=== PATIENT | female | born 1980 | race Caucasian/White ===

== ENCOUNTER 2024-06-04 13:00 | Outpatient (RCR) | payer OTHER, SELFPAY | END 2024-10-02 23:59 | disposition home or self-care (01) | PROVIDERS: PCP Physician Assistant Medical; Visit Provider Physician Assistant Medical | DX: M67.814 Other specified disorders of tendon, left shoulder (principal); M77.8 Other enthesopathies, not elsewhere classified; M75.42 Impingement syndrome of left shoulder; M75.52 Bursitis of left shoulder; M25.512 Pain in left shoulder; M25.612 Stiffness of left shoulder, not elsewhere classified; M62.512 Muscle wasting and atrophy, not elsewhere classified, left shoulder; R29.3 Abnormal posture; Z51.89 Encounter for other specified aftercare | CPT/HCPCS: 97110; 97140; 97162 ==

== ENCOUNTER 2024-12-14 10:39 | Outpatient (CLI) | payer BC, SELFPAY ==
--- OUTSIDE RECORDS SUMMARY | 2024-12-14 10:49 | XMS_ITS | Clinical Summary ---
Author Organization [facility] Address [address] [place] [address] Care Team Providers Care Quarter Seamer Name Role Phone Unavailable Primary Care Provider Unavailabl e Source Comments Patient records contain information from all sites at [facility]. For routine questions regarding patient records, call [phone] during business hours, M-F 8:00 AM - 5:00 PM Central Time. Record requests for emergency care only can be directed to [phone] at any time.[facility] Allergies Active Allergy Reactions Criticality Noted Date Comments Clotrimazole Rash 03/17/2017 Iodinated Contrast Media Other (see comments) Medium 0 01/18/2023 Racing heart Medications cyclobenzaprine (FLEXERIL) 10 mg tablet Take 10 mg by mouth 2 (two) times a day as needed. 3 Active desvenlafaxine (PRISTIQ) 50 mg 24 hr tablet Take 50 mg by mouth. 3 Active LORazepam (ATIVAN) 0.5 mg tablet Take one tablet sparingly as needed for anxiety. Limit to once daily. 7 Active polyethylene glycol-electrol ytes (GoLYTELY) 236-22.74-6.74 -5.86 gram solution Take 4,000 mL by mouth. 3 Active propranoloL (INDERAL LA) 120 mg 24 hr capsule Take 120 mg by mouth. 3 Active propranoloL (INDERAL LA) 60 mg 24 hr capsule 3 Active rosuvastatin (CRESTOR) 10 mg tablet Take 10 mg by mouth. 3 Active Ozempic 1 mg/dose (4 mg/3 mL) injection Inject 1 mg under the skin over 168 hr. 3 Active semaglutide (OZEMPIC) 0.25 mg or 0.5 mg (2 mg/3 mL) injection Inject 0.25 mg under the skin over 168 hr. 3 Active Active Problems Problem Noted Date Diagnosed Date Major Depressive Disorder Single Episode Unspeci fied 03/20/2012 Overview (11/16/2016): Major depression, single episode NOS Immunizations Immunization Administration Dates Next Due Tdap 04/10/2009 Social History Tobacco Use Types Packs/Day Years Used Date Smoking Tobacco: Never Nutrition Answer Date Recorded Nutrition: EVOO Fat Source Unknown 12/02 Nutrition: Servings of Fruits/Vegetables per Day Not on file 12/02/2022 Dental Answer Date Recorded Dental: Regular Dentist Unknown 12/03/19 Comments Unknown Sex and Gender Information Value Date Recorded Sex Assigned at Not on file Legal Sex Female 4:26 AM [employer] Gender Identity Not on file Sexual Orientation Not on file Last Filed Vital Signs Vital Sign Reading Time Taken Comments Blood Pressure 110/64 11/02/2012 9:04 AM CDT Pulse 75 11/02/2012 9:04 AM CDT Temperature - - Respiratory Rate 18 08/10/2012 8:16 AM [employer] Oxygen Saturation - - Inhaled Oxygen Concentration - - Weight 113 kg (249 lb 12.5 oz) 11/02/2012 9:04 A M CDT Height 165 cm (5' 4.96) 11/02/2012 9:04 AM CDT Body Mass Index 41.62 11/02/2012 9:04 AM CDT Plan of Treatment Health Maintenance Due Date Last Done Comments Depression Monitoring (PHQ-9) 1981 Hepatitis C Screening 1980 Cervical/Vaginal Cancer Screening 11/03/2015 11/02/2012 COVID-19 Vaccine ( season) 2024 05/18/2022, 03/27/2021, 08/01/2020, Additional history exists Influenza Vaccine (#1) 2024 2, 05/26/2021, 04/28/2020, Additional history exists Depression Monitoring (PHQ-9 for quality tracking) 06/27/2024 Mammogram 06/05/2025 06/05/2024, 07/28/2021 DTaP,Tdap,and Td Vaccines (4 - Td or Tdap) 12/30/2027 12/29/2017, 04/10/2009, 11/29/2008 Lipid (Cholesterol) Screening 10/31/2028 11/01/2023, 11/05/2022, 09/16/2020 Hepatitis B Vaccines Completed 11/29/2008, 03/29/2005, 01/25/2002 HIV Screening Completed 03/28/2009 Hepatitis B Screening Discontinued 07/22/2020 HPV Vaccines Aged Out No longer eligi ble based on patient's age to complete this topic IPV Vaccines Aged Out No longer eligi ble based on patient's age to complete this topic Pneumococcal vaccine (0-49 years) Aged Out No longer eligible based on patient's age to complete this topic Procedures Procedure Name Priority Date/Time Associated Diagnosis Comments THINPREP SCREEN HPV REFLEX Routine 11/02/2012 11:30 AM CDT from Last 3 Months or Most Recently Relevant to Health Maintenance Results * Pathology ThinPrep Screen HPV Reflex (11/02/2012 11:30 AM CDT) Interpretation [id number] POWERCHART [facility] See Comment POWERCHART Comment: A. ThinPrep Pap Test Screen (Cervical/Endocervical HPV Reflex): Satisfactory for evaluation. Negative for intraepithelial lesion or malignancy. Fungal organisms morphologically consistent with Tona species [facility] See Comment POWERCHART Comment: Report electronically signed by APPLE Bess(ASCP) 11/08/2012 13:52 Interpreted by: APPLE Bess(ASCP) [facility] See Comment POWERCHART Comment: A. ThinPrep Pap Test Screen (Cervical/Endocervical HPV Reflex): Received cloudy specimen in ThinPrep vial. Test Performed by: [address] [address] [employer] Teacher: Ranjith Coronel III, M.D. Cervix/Endocervix 11/02/2012 11:30 AM CDT us Delon Ornelas M.D. LAB PAP PATHDX ORDERABLES Cherise l Result POWERCHART from Last 3 Months or Most Recently Relevant to Health Maintenance Insurance [facility] [employer]
--- OUTSIDE RECORDS SUMMARY | 2024-12-14 10:49 | XMS_ITS | Clinical Summary ---
Author Organization [facility] Address [address] [place] [id number] Care Team Providers Care Reading Instructor Name Role Phone Oliva Rawls Primary Care Provider Allergies Active Allergy Reactions Criticality Noted Date Comments Iodinated Contrast Media *Unknown Medium 01/18/2023 Racing heart Clotrimazole Rash 03/17/2017 Medications triamcinolone (ARISTOCORT; KENALOG) 0.1 % creamIndications: Vaginal itching Apply to affected area 1-2 times a day as needed. Do not use >14days 80 g 2 5:23 PM CDT 03/15/20 22 Active LORazepam (Ativan) 0.5 mg tabIndications:Ot her insomnia Take one tablet sparingly as needed for anxiety. Limit to once daily. 15 Tablet 05/18/20 23 Active loperamide (IMODIUM) 2 mg capsuleIndication s:Gastroenteritis Take 2 capsules (4mg) orally with 1st loose stool, then 1 capsule (2mg) with other loose stools. Max 16 mg in 24 hrs. 40 Capsule 06/29/19 24 Active desvenlafaxine succinate (Pristiq) 100 mg extended release tabletIndications :Anxiety,Depressi on, unspecified depression type Take 1 Tablet (100 mg) by mouth once daily in the morning. 90 Tablet 3 05/07/20 24 Active propranolol ER (INDERAL LA) 120 mg Cs24 Sustained-Release capsuleIndication s:Anxiety,HTN (hypertension) Take 1 Capsule (120 mg) by mouth once daily. 90 Capsule 3 05/07/20 24 Active glipiZIDE (GLUCOTROL) 10 mg tabletIndications :Type 2 diabetes mellitus without complication, without long-term current use of insulin (HC) Take 1 Tablet (10 mg) by mouth once daily before a meal. 90 Tablet 3 08/20/19 25 Active pantoprazole (PROTONIX) 40 mg delayed-release tabletIndications :Gastric reflux Take 1 Tablet (40 mg) by mouth once daily. 90 Tablet 1 08/20/19 25 Active rosuvastatin (CRESTOR) 10 mg tabletIndications :Hypercholesterol emia Take 1 Tablet (10 mg) by mouth at bedtime. 90 Tablet 3 08/20/19 25 Active celecoxib 200 mg capsuleIndication s:Impingement syndrome of left shoulder Take 1 Capsule (200 mg) by mouth two times daily with meals. 180 Capsule 3 09/20/19 25 Active traZODone 50 mg tabletIndications :Insomnia, idiopathic Take 1-3 Tablets (50-150 mg) by mouth at bedtime. 270 Tablet 3 09/20/19 25 Active metFORMIN 500 mg Extended-Release tabletIndications :Type 2 diabetes mellitus without complication, without long-term current use of insulin (HC) Take 1 Tablet (500 mg) by mouth once daily. 90 Tablet 09/20/19 25 Active HYDROcodone-aceta minophen (5-325 mg/tablet)Indicat ions:Kidney stone Take 1 Tablet by mouth 3 times daily if needed for Pain. Max acetaminophen dose: 4000 mg in 24 hrs. 5 Tablet 10/11/19 25 Active tamsulosin 0.4 mg capsuleIndication s:Kidney stone Take 1 Capsule (0.4 mg) by mouth once daily after a meal. 30 Capsule 10/11/19 25 Active predniSONE 10 mg tabletIndications :Lumbar radiculopathy Take 4 Tablets (40 mg) by mouth once daily with a meal for 3 days, THEN 3 Tablets (30 mg) once daily with a meal for 3 days, THEN 2 Tablets (20 mg) once daily with a meal for 3 days, THEN 1 Tablet (10 mg) once daily with a meal for 3 days. 30 Tablet 11/24/19 25 025 Active Problems Problem Noted Date Diagnosed Date Family history of colon cancer 04/29/2023 Overview (04/29/2023): Colonoscopy 04/2023 mild diverticulosis, repeat in 5 years Type 2 diabetes mellitus wit hout complication, without long-term current use of insulin 11/08/2022 H/O total hysterectomy 10/21/2021 Hidradenitis suppurativa 06/09/2020 PCOS (polycystic ovarian syndrome) 04/25/2020 Overview (04/25/2020): Dx via US at [facility] Nephrolithiasis 04/25/2020 Scarring, keloid 04/25/2020 Hypermetropia of both eyes 07/08/2017 Major depressive disorder with single episode Overview (01/16/2020): Overview: Major depression, single episode NOS Encounters Date Type Department Care Team Description 11/30/2024 Telephone [facility] [address] [place] [address] Roderick Alvarado MD Results 11/29/2024 2:45 PM CDT Ancillary Procedure [facility] [address] [facility] [address] [place] [address] 11/29/2024 Travel 11/23/2024 10:20 AM CDT Office Visit [facility] [address] [place] [address] Roderick Alvarado MD Musculoskeletal Problem (Consult back pain) 11/23/2024 Travel 10/10/2024 2:00 PM CDT Ancillary Procedure [facility] [address] [place] [address] 10/10/2024 1:00 PM CDT Office Visit [facility] [address] [place] [address] Oliva Rawls PA Back Pain (L lower back, that radiates around the front down the leg. / Wondering if she has kidney stones. ); Urinary Problem (Blood in urine) 10/10/2024 Travel 09/19/2024 3:20 PM CDT Office Visit [facility] [address] [place] [address] Oliva Rawls PA Medication Management (Stopped mounjaro due to side effects - discuss next steps) 09/19/2024 Travel 09/13/2024 11:38 PM CDT - 09/14/2024 2:55 AM CDT Emergency [address] [address] Mikel Flor MD Nausea and vomiting, unspecified vomiting type (Primary Dx); Diarrhea, unspecified type; Medication side effect Discharge Disposition: Home Self Care 09/13/2024 Travel from Last 3 Months Immunizations Immunization Administration Dates Next Due AMB INFLUENZA, IIV4 (AGE=>6M OS) MDV (Flu Clinic Only) 04/09/2019 03/26/2020 COVID-19 vaccine (Clavister-Bio NTech 30mcg/0.3mL) 12YO+ BIVALENT PF, MDV 05/18/2022 COVID-19 vaccine (Pfizer-Bio NTech 30mcg/0.3mL) PF, MDV 08/01/2020,07/10/2020 Hepatitis B (Adult) 11/29/2008 Hepatitis B, Unspecified 03/29/2005,01/25/2002 Influenza A (H1N1), Inactiva jennifer (Age >=3 Years) 04/25/2009 Influenza Virus, Unspecified 03/28/2015 Influenza, IIV3 (Age 6-35 mos) 03/27/2013 Influenza, IIV3 (Age >=3 years) 04/16/2008 Influenza, IIV4 04/09/2022,,04/28/2020,03/27,04/05/2017,03/04/2016,03/27/2014 MMR 10/13/1993,12/16/1982 Tdap 12/29/2017,04/10/2009,11/29/2008 Tdap, Unspecified 11/29/2008 Family History Medical History Relation Name Comments Diabetes Father Cancer Maternal Aunt 1 adrenal Cancer-colon Maternal Aunt 1 Lung cancer Maternal Aunt 1 Cancer-colon Maternal Aunt 2 Diabetes Maternal Grandfather Lung cancer Maternal Uncle Cancer Mother adrenal Cancer-colon Mother Lung cancer Mother Cancer-breast Paternal Aunt Cancer Paternal Grandfather ear Diabetes Paternal Grandmother Relation Name Status Comments Father Alive Maternal Aunt 1 Maternal Aunt 2 Alive Maternal Grandfather Maternal Uncle Alive Mother Paternal Aunt Paternal Grandfather Paternal Grandmother Social History Tobacco Use Types Packs/Day Years Used Date Smoking Tobacco: Never Smokeless Tobacco: Never Tobacco Cessation:Counseling Given: Yes Alcohol Use Standard Drinks/Week Comments Not Currently 0 (1 standard drink = 0.6 oz pure alcohol) 3 times yearly, 2-3 drinks at a sitting PHQ-2 Answer Date Recorded PHQ-2 TOTAL SCORE 1 10/14/2023 Social Connections Answer Date Recorded Do you often feel lonely or isolated from those around you? 0 11/01/2023 Financial Resource Strain Answer Date R ecorded Difficulty of Paying Living Expenses 3 11/01/2023 Difficulty of Paying Living Expenses Not on file 11/01/2023 Food Insecurity Answer Date Recorded Do you worry your food will run out before you are able to buy more? 1 11/01/2023 Transportation Needs Answer Date Record ed Does lack of transportation keep you from medica l appointments? 1 11/01/2023 Does lack of transportation keep you from work, meetings or getting things that you need? 1 11/01/2023 Housing Stability Answer Date Recorded What is your housing situation today? 1 11/01/2023 Interpersonal Safety Answer Date Record ed Are you being hit, kicked, p ushed or yelled at (see row info)? No 09/13/2024 Interpersonal Safety Abuse 12 - 18 Not on file 09/13/2024 Interpersonal Safety Ambulatory Vulnerability No t on file 09/13/2024 Utilities Answer Date Recorded Do you have trouble paying f or utilities (for example, heat, electricity, water, phone)? 1 11/01/2023 Comments No Sex and Gender Information Value Date Recorded Sex Assigned at Not on file Legal Sex Female 6:28 AM [employer] Gender Identity Not on file Sexual Orientation Not on file Obstetrics History Para Term AB IAB SAB Ectopic Multiple Livin g Live Births 3 2 2 0 0 0 0 0 0 2 2 Date Outcome GA Total Labor Labor/2nd/3rd Weight Sex Type Anes PTL Kaci A1 A5 Name Clin Comments:System Genera jennifer. Please review and update details. 008 Term 38w 0d 3.23 kg (7 lb 2 oz) M Living 010 Term 38w 0d 3.52 kg (7 lb 12 oz) F Living Last Filed Vital Signs Vital Sign Reading Time Taken Comments Blood Pressure 127/79 11/23/2024 10:26 AM CDT Pulse 70 11/23/2024 10:26 AM CDT Temperature 36.7 C (98 F) 11/23/2024 10:26 AM CDT Respiratory Rate 18 09/13/2024 11:40 PM CDT Oxygen Saturation 96% 11/23/2024 10:26 AM CDT Inhaled Oxygen Concentration - - Weight 123 kg (271 lb 1.6 oz) 11/23/2024 10:26 A M CDT shoes on Height 167 cm (5' 5.75) 11/23/2024 10:26 AM CDT shoes on Body Mass Index 44.09 11/23/2024 10:26 AM CDT Plan of Treatment Upcoming Encounters Date Type Department Care Team (Late st Contact Info) Description 12/14/2024 11:20 AM CDT Office Visit [facility] [address] [place] [address] Roderick Alvarado MD [address] [place] [address] Arrived Health Maintenance Due Date Last Done Comments Pneumococcal series for age 6-49 (1 of 2 - PCV) 2000 COVID-19 vaccine series ( season) 2024 05/18/2022, 03/27/2021, 08/01/2020, Additional history exists Depression screening for age 12+ 10/12/2024 10/13/2023, 07/24/2021, 06/30/2021, Additional history exists Influenza Vaccine (Season Ended) 2025 04/09/2022, 05/26/2021, 04/28/2020, Additional history exists BMI (ht and wt on same day) for age 18+ 11/23/2025 11/23/2024, 08/20/2024, 05/07/2024, Additional history exists Tetanus booster 12/30/2027 12/29/2017, 03/27, 11/29/2008, Additional history exists Colonoscopy through age 75 04/29/2028 11/03 /2023, 04/29/2023, 04/29/2023 Hepatitis B series for 19+ Completed 11/29, 03/29/2005, 01/25/2002 Tdap Completed 12/29/2017, 03/27, 11/29/2008, Additional history exists HIV for age 15-65 Completed 03/15/2022, 07/22/2020 Hepatitis C screening for ag e 18-79 Completed 03/15/2022, 07/22/2020 Procedures Procedure Name Priority Date/Time Associated Diagnosis Comments AMB EPIDURAL STEROID INJECTION Routine 12/14/2024 7:59 AM CDT Lumbar radiculopathy Lumbar spondylosis Lumbar facet arthropathy MR SPINE LUMBAR WO Routine 11/29/2024 3: 23 PM CDT Lumbar facet arthropathy Lumbar spondylosis Lumbar radiculopathy CT ABDOMEN PELVIS STONE PROTOCOL WO STAT 10/10/2024 1:49 PM CDT Flank pain Hematuria, unspecified type URINALYSIS MACROSCOPIC - [facility] ONLY POC DIP ([facility]) Routine 10/10/2024 1:18 PM CDT Flank pain Hematuria, unspecified type URINE CULTURE Routine 10/10/2024 1:15 PM CDT Flank pain Hematuria, unspecified type URINALYSIS MICROSCOPIC Routine 10/10/2024 1:15 PM CDT Flank pain Hematuria, unspecified type URINE STAT 09/14/2024 1:38 AM CDT UA W/ SEDIMENT EXAM REFLEXED PER CRITERIA STAT 09/14/2024 1:38 AM CDT CBC WITH AUTO DIFFERENTIAL STAT 09/14/2024 12:06 AM CDT LIPASE STAT 09/14/2024 12:06 AM CDT HEPATIC FUNCTION PANEL STAT 09/14/2024 12:06 AM CDT BASIC METABOLIC PANEL STAT 09/14/2024 12:06 AM CDT CBC WITH AUTO DIFFERENTIAL STAT 09/14/2024 12:06 AM CDT COLONOSCOPY 04/29/2023 9:29 AM CDT ANTI HIV 1/2 Routine 03/15/2022 4:24 PM CDT Screen for STD (sexually transmitted disease) ANTI HCV Routine 03/15/2022 4:24 PM CDT Screen for STD (sexually transmitted disease) from Last 3 Months or Most Recently Relevant to Health Maintenance Results * MR SPINE LUMBAR WO (11/29/2024 3:23 PM CDT) Anatomical Region Laterality Modality Spine, LUMBAR SPINE Magnetic Res onance 11/29/2024 7:16 PM CDT Impressions 11/29/2024 7:16 PM CDT 1. There is sacralization of the L5 segment. Plain film correlation recommended prior to any surgical intervention. 2. Mild to moderate left L1-2 foraminal narrowing. Dictated by Zander Frazier MD @ 11/29/2024 7:16:44 PM (Electronically Signed) Narrative 11/29/2024 7:16 PM CDT For Patients: As a result of the Cures Act, medical imaging exams and procedure reports are released immediately into your electronic medical record. You may view this report before your referring provider. If you have questions, please contact your health care provider. INDICATION: Low back pain. TECHNIQUE: Noncontrast sagittal and axial T1, T2, and sagittal STIR sequences are provided. No comparisons. FINDINGS: There is sacralization of the L5 segment. Plain film correlation recommended prior to any surgical intervention. The overall stature, alignment and intrinsic marrow signal of the lumbar spine is within normal limits. Conus is normal. L1-2: Moderate bilateral facet arthropathy is slightly worse on the left results in mild to moderate left foraminal narrowing with contact of the exiting left L1 nerve root. No central canal or right foraminal narrowing. L2-3, L3-4: Unremarkable. L4-5: Mild to moderate bilateral facet arthropathy results in no central canal or foraminal narrowing. L5-S1: Unremarkable. Procedure Note Augusto Frazier, - 11/29/2024 For Patients: As a result of the Cures Act, medical imagingexams and procedure reports are released immediately into your electronicmedical record. You may view this report before your referring provider.If you have questions, please contact your health care provider. INDICATION: Low back pain. TECHNIQUE: Noncontrast sagittal and axial T1, T2, and sagittal STIR sequences areprovided. No comparisons. FINDINGS: There is sacralization of the L5 segment. Plain film correlationrecommended prior to any surgical intervention. The overall stature,alignment and intrinsic marrow signal of the lumbar spine is within normallimits. Conus is normal. L1-2: Moderate bilateral facet arthropathy is slightly worse on the leftresults in mild to moderate left foraminal narrowing with contact of theexiting left L1 nerve root. No central canal or right foraminal narrowing. L2-3, L3-4: Unremarkable. L4-5: Mild to moderate bilateral facet arthropathy results in no centralcanal or foraminal narrowing. L5-S1: Unremarkable. IMPRESSION: 1. There is sacralization of the L5 segment. Plain film correlationrecommended prior to any surgical intervention. 2. Mild to moderate left L1-2 foraminal narrowing. Dictated by Zander Frazier MD @ 11/29/2024 7:16:44 PM (Electronically Signed) us Roderick Alvarado MD MR Final Resu lt * CT ABDOMEN PELVIS STONE PROTOCOL WO (10/10/2024 1:49 PM CDT) Anatomical Region Laterality Modality Abdomen, Pelvis, AORTA, LIVER, SPLEEN Computed Tomography 10/10/2024 2:04 PM CDT Impressions 10/10/2024 2:04 PM CDT There is a 2 x 2 millimeter nonobstructing stone in the distal left ureter. Please note that all CT scans at this facility use dose modulation, iterative reconstruction, and/or weight-based dosing when appropriate to reduce radiation dose to as low as reasonably achievable. Dictated by Mar Conroy MD @ 10/10/2024 2:04:28 PM (Electronically Signed) Narrative 10/10/2024 2:04 PM CDT For Patients: As a result of the Cures Act, medical imaging exams and procedure reports are released immediately into your electronic medical record. You may view this report before your referring provider. If you have questions, please contact your health care provider. INDICATION: Flank pain TECHNIQUE: CT abdomen and pelvis without contrast. COMPARISON: CT abdomen pelvis 06/29/2023 FINDINGS: Lower chest: Unremarkable. Liver: Unremarkable. Gallbladder and bile ducts: Cholecystectomy. No biliary ductal dilation. Pancreas: Unremarkable. Spleen: Unremarkable. Adrenal glands: Unremarkable. Kidneys: There is a 2 x 2 millimeter stone in the distal left ureter approximately 1 centimeter proximal to the UVJ without evidence of hydronephrosis (). Nonobstructing nephrolith in the right kidney. Subcentimeter hypodense lesion in the left kidney, likely cyst. GI tract: No obstruction. Colonic diverticulosis without diverticulitis. Normal appendix. Vasculature: Abdominal aorta is normal in caliber. Lymph nodes: No lymphadenopathy. Peritoneum/Abdominal Wall: Unremarkable. No sign of mass or infiltration. No free air or significant free fluid. Pelvis: Unremarkable. No pelvic masses. Bones: Partial sacralization of L5. Procedure Note Mar Conroy MD - 10/10/2024 For Patients: As a result of the Cures Act, medical imagingexams and procedure reports are released immediately into your electronicmedical record. You may view this report before your referring provider.If you have questions, please contact your health care provider. INDICATION: Flank pain TECHNIQUE: CT abdomen and pelvis without contrast. COMPARISON: CT abdomen pelvis 06/29/2023 FINDINGS: Lower chest: Unremarkable. Liver: Unremarkable. Gallbladder and bile ducts: Cholecystectomy. No biliary ductal dilation. Pancreas: Unremarkable. Spleen: Unremarkable. Adrenal glands: Unremarkable. Kidneys: There is a 2 x 2 millimeter stone in the distal left ureterapproximately 1 centimeter proximal to the UVJ without evidence ofhydronephrosis (198). Nonobstructing nephrolith in the right kidney.Subcentimeter hypodense lesion in the left kidney, likely cyst. GI tract: No obstruction. Colonic diverticulosis without diverticulitis.Normal appendix. Vasculature: Abdominal aorta is normal in caliber. Lymph nodes: No lymphadenopathy. Peritoneum/Abdominal Wall: Unremarkable. No sign of mass or infiltration.No free air or significant free fluid. Pelvis: Unremarkable. No pelvic masses. Bones: Partial sacralization of L5. IMPRESSION: There is a 2 x 2 millimeter nonobstructing stone in the distal leftureter. Please note that all CT scans at this facility use dose modulation,iterative reconstruction, and/or weight-based dosing when appropriate toreduce radiation dose to as low as reasonably achievable. Dictated by Mar Conroy MD @ 10/10/2024 2:04:28 PM (Electronically Signed) Oliva SAMANO CT Final R esult * (ABNORMAL) POCT Urinalysis Dipstick Only [[id number]] (10/10/2024 1:18 PM CDT) PH 6.0 5.0 - 8.0 [facility] SPECIFIC GRAVITY < OR = 1.005 1.001 - 1.035 [facility] Comment: Specific [place] values resulted are outside the analytical measurement range of this device. Recommend repeat/additional testing as clinically indicated. GLUCOSE NEGATIVE NEGATIVE [facility] BILIRUBIN NEGATIVE NEGATIVE [facility] KETONES NEGATIVE NEGATIVE [facility] OCCULT BLOOD 3+(A) NEGATIVE [facility] PROTEIN NEGATIVE NEGATIVE [facility] NITRITE NEGATIVE NEGATIVE [facility] LEUKOCYTE ESTERASE NEGATIVE NEGATIVE [facility] Urine URINE SPECIMEN / Unknown 10/10/2024 1:18 PM CDT 10/10/2024 1:18 PM CDT us Oliva SAMANO URINE Final R esult [facility] [address] [place] [address], [place] [phone] [facility] [address] [place] [address] * (ABNORMAL) URINALYSIS MICROSCOPIC [40033.1] - routine (10/10/2024 1:15 PM CDT) RBC 3-5(A) 0-2, None Seen /HPF 10/10/2024 11:10 PM CDT [facility] WBC 0-2 0-2, 3-5, None Seen /HPF 10/10/2024 11:10 PM CDT [facility] BACTERIA None Seen None Seen, Rare, Few Bacteria/ HPF 10/10/2024 11:10 PM CDT [facility] EPITHELIAL CELLS Few None Seen, Few Epi/HPF 10/10/2024 11:10 PM CDT [facility] HYALINE CASTS 0-2 0-2, 3-5 /LPF 10/10/2024 11:10 PM CDT [facility] Urine URINE SPECIMEN / Unknown Non-Blood / Unknown 10/10/2024 1:15 PM CDT 10/10/2024 1:15 PM CDT us Oliva SAMANO URINE [facility] R [facility] [address] [place] [address], * URINE CULTURE [32907.2] (10/10/2024 1:15 PM CDT) CULTURE No growth (<1,000 CFU/mL) 10/12/2024 8:23 AM CDT [facility] Urine URINE SPECIMEN / Unknown Non-Blood / Unknown 10/10/2024 1:15 PM CDT 10/10/2024 1:15 PM CDT us Oliva SAMANO MICROBIOLOGY Final R esult [facility] [address] [place] [address], [place] * URINALYSIS W REFLEX MICROSCOPIC IF POSITIVE (09/14/2024 1:38 AM CDT) COLOR Yellow Yellow Color 09/14/2024 1:51 AM [facility] CLARITY Clear Clear Clarity 09/14/2024 1:51 AM [facility] SPECIFIC GRAVITY,URINE 1.020 1.010, 1.015, 1.020, 1.025 09/14/2024 1:51 AM [facility] PH,URINE 6.0 6.0, 7.0, 8.0, 5.5, 6.5, 7.5, 8.5 09/14/2024 1:51 AM [facility] UROBILINOGEN, QUALITATIVE Normal Normal EU/dl 09/14/2024 1:51 AM [facility] PROTEIN, URINE Negative Negative mg/dL 09/14/2024 1:51 AM [facility] GLUCOSE, URINE Negative Negative mg/dL 09/14/2024 1:51 AM [facility] KETONES,URINE Negative Negative mg/dL 09/14/2024 1:51 AM [facility] BILIRUBIN,URI NE Negative Negative 09/14/2024 1:51 AM [facility] OCCULT BLOOD,URINE Negative Negative 09/14/2024 1:51 AM [facility] NITRITE Negative Negative 09/14/2024 1:51 AM [facility] LEUKOCYTE ESTERASE Negative Negative 09/14/2024 1:51 AM [facility] Urine URINE SPECIMEN / Unknown Non-Blood / Unknown 09/14/2024 1:38 AM CDT 09/14/2024 1:48 AM T us Mikel Flor MD URINE Final Result [facility] [address] [place] [address] * URINE (09/14/2024 1:38 AM CDT) ,URIN E Negative Negative 09/14/2024 1:54 AM [facility] Urine URINE SPECIMEN / Unknown Non-Blood / Unknown 09/14/2024 1:38 AM CDT 09/14/2024 1:48 AM CDT Mikel Flor MD URINE Final Result [facility] [address] [facility] [place] [address] * (ABNORMAL) CBC WITH AUTO DIFFERENTIAL (09/14/2024 12:06 AM CDT) WHITE BLOOD COUNT 14.7(H) 4.5 - 11.0 thou/cu mm 09/14/2024 12:11 AM [facility] RED BLOOD COUNT 5.64(H) 4.00 - 5.20 mil/cu mm 09/14/2024 12:11 AM [facility] HEMOGLOBIN 15.9 12.0 - 16.0 g/dL 09/14/2024 12:11 AM [facility] HEMATOCRIT 48.1 33.0 - 51.0 % 09/14/2024 12:11 AM [facility] MCV 85 80 - 100 fL 09/14/2024 12:11 AM [facility] MCH 28.2 26.0 - 34.0 pg 09/14/2024 12:11 AM [facility] MCHC 33.1 32.0 - 36.0 g/dL 09/14/2024 12:11 AM [facility] RDW 13.2 11.5 - 15.5 % 09/14/2024 12:11 AM [facility] PLATELET COUNT 322 140 - 440 thou/cu mm 09/14/2024 12:11 AM [facility] MPV 8.7 6.5 - 11.0 fL 09/14/2024 12:11 AM [facility] % NEUT 76.9 % 09/14/2024 12:11 AM [facility] % LYMPH 15.3 % 09/14/2024 12:11 AM [facility] % MONO 6.6 % 09/14/2024 12:11 AM [facility] % EOS 1.1 % 09/14/2024 12:11 AM [facility] % BASO 0.1 % 09/14/2024 12:11 AM [facility] ABSOLUTE NEUTROPHILS 11.3(H) 1.7 - 7.0 thou/cu mm 09/14/2024 12:11 AM [facility] ABSOLUTE LYMPHOCYTES 2.2 0.9 - 2.9 thou/cu mm 09/14/2024 12:11 AM [facility] ABSOLUTE MONOCYTES 1.0(H) <0.9 thou/cu mm 09/14/2024 12:11 AM [facility] ABSOLUTE EOSINOPHILS 0.2 <0.5 thou/cu mm 09/14/2024 12:11 AM [facility] ABSOLUTE BASOPHILS 0.0 <0.3 thou/cu mm 09/14/2024 12:11 AM [facility] Blood BLOOD SPECIMEN / Unknown Venipuncture / Unknown 09/14/2024 12:06 AM CDT 09/14/2024 12:08 AM T us Mikel Flor MD HEMATOLOGY Final Result [facility] [address] [place] [address] * LIPASE (09/14/2024 12:06 AM CDT) LIPASE 35.0 13.0 - 60.0 IU/L 09/14/2024 12:28 AM [facility] Blood BLOOD SPECIMEN / Unknown Venipuncture / Unknown 09/14/2024 12:06 AM CDT 09/14/2024 12:08 AM CDT Mikel Flor MD CHEMISTRY Final Result [facility] [address] [place] [address] * HEPATIC FUNCTION PANEL (09/14/2024 12:06 AM CDT) ALBUMIN 4.4 4.0 - 4.9 g/dL 09/14/2024 12:28 AM T [facility] PROTEIN,TOTAL 7.8 6.0 - 8.0 g/dL 09/14/2024 12:28 AM [facility] BILIRUBIN,TOTAL 0.5 0.0 - 1.2 mg/dL 09/14/2024 12:28 AM [facility] BILIRUBIN,DIRECT 0.2 0.0 - 0.2 mg/dL 09/14/2024 12:28 AM [facility] BILIRUBIN,INDIRE CT 0.3 0.2 - 0.8 mg/dL 09/14/2024 12:28 AM [facility] ALK PHOSPHATASE 72 35 - 104 IU/L 09/14/2024 12:28 AM [facility] ALT (SGPT) 19 10 - 35 IU/L 09/14/2024 12:28 AM [facility] AST (SGOT) 16 10 - 35 IU/L 09/14/2024 12:28 AM [facility] Blood BLOOD SPECIMEN / Unknown Venipuncture / Unknown 09/14/2024 12:06 AM CDT 09/14/2024 12:08 AM CDT Mikel Flor MD CHEMISTRY Final Result Performing Organization Address City/[facility]/ZIP Co de Phone Number [facility] [address] [place] [address] * (ABNORMAL) BASIC METABOLIC PANEL (09/14/2024 12:06 AM [facility]) SODIUM 137 136 - 145 mmol/L 09/14/2024 12:28 AM [facility] POTASSIUM 4.7 3.5 - 5.1 mmol/L 09/14/2024 12:28 AM [facility] CHLORIDE 103 98 - 107 mmol/L 09/14/2024 12:28 AM [facility] CO2,TOTAL 25 22 - 29 mmol/L 09/14/2024 12:28 AM [facility] ANION GAP 9 5 - 18 09/14/2024 12:28 AM [facility] GLUCOSE 149(H) 70 - 99 mg/dL 09/14/2024 12:28 AM [facility] CALCIUM 9.3 8.8 - 10.4 mg/dL 09/14/2024 12:28 AM [facility] Comment: Reference ranges for this test were updated on 05/01/2024 to reflect our healthy population more accurately. Reference range changes are not retroactively applied to results, but previous results using the same methodology can be interpreted in the context of the new reference range. BUN 11 6 - 20 mg/dL 09/14/2024 12:28 AM [facility] CREATININE 0.80 0.50 - 0.90 mg/dL 09/14/2024 12:28 AM [facility] BUN/CREAT RATIO 14 10 - 20 12:28 AM [facility] eGFR >90 >90 mL/min/1. 73m2 09/14/2024 12:28 AM [facility] Comment:As of 2021, eG FR is calculated by the CKD-EPI creatinine equation without race adjustment. eGFR can be influenced by muscle mass, exercise, and diet. The reported eGFR is an estimation only and is only applicable if the renal function is stable. Blood BLOOD SPECIMEN / Unknown Venipuncture / Unknown 09/14/2024 12:06 AM CDT 09/14/2024 12:08 AM T us Mikel Flor MD CHEMISTRY Final Result [facility] [address] [place] [address] * COLONOSCOPY (04/29/2023 9:29 AM CDT) 04/29/2023 9:29 AM CDT Narrative Transcriptions Kenroy Rose MD - 04/29/2023 11:05 AM CDT Patient Name: Simon Chen Procedure Date: 04/29/2023 Gender: Female Date of : 1980 Admit Type: Outpatient Procedure: Colonoscopy Proceduralist: Kenroy Rose MD , Regina Hernandez, RN (Nurse), Elina Bonilla, AKILA (Nurse) Referring MD: Kenroy Rose Indications/Pre-Op Diagnosis: Screening patient at increased risk: Family history of colorectal cancer in multiple 1st-degree relatives, This is the patient's first colonoscopy Medications: Fentanyl 100 micrograms IV, Midazolam 3 mgIV Procedure Description: The patient had risks, benefits and alternatives explained to andgave informed consent. The patient had a stable cardiopulmonary status and judged an adequate candidate for conscious sedation. The endoscope [id number] was passed through the anus andadvanced to the cecum, identified by appendiceal orifice and ileocecal valve.The colonoscopy was performed without difficulty. The patient toleratedthe procedure well. The quality of the bowel preparation was good. The ileocecal valve, appendiceal orifice, and rectum were photographed. Complications: No immediate complications. Estimated Blood Loss & Specimen: Estimated blood loss: none. Specimen collected - None Findings: The perianal and digital rectal examinations were normal. Scattered large-mouthed and small-mouthed diverticula were found inthe sigmoid colon, descending colon and ascending colon. The exam was otherwise without abnormality. Impressions/Post-Op Diagnosis: - Diverticulosis in the sigmoid colon, in the descending colon and in the ascending colon. - The examination was otherwise normal. - No specimens collected. Recommendation: - Patient has a contact number available for emergencies. The signsand symptoms of potential delayed complications were discussed with the patient. Return to normal activities tomorrow. Written discharge instructions were provided to the patient. - Resume previous diet. - Continue present medications. - Repeat colonoscopy in 5 years for screening purposes. Moderate Sedation: A time out was performed before the procedure. Moderate (conscious) sedation was administered by the endoscopy nurse and supervised bythe endoscopist. The following parameters were monitored: oxygensaturation, heart rate, blood pressure, EKG, CO2, respiratory rate, adequacy of pulmonary ventilation and reponse to care. Please refer to the patient's medical record flowsheets and nursing notes for moderate sedation details. Total physician intraservice time was 13 minutes. Kenroy Rose MD 04/29/2023 11:05:16 AM This report has been signed electronically. Note Initiated On: 04/29/2023 9:29 AM Procedure Code(s): --- Professional --- 15493, Colonoscopy, flexible; diagnostic, including collection of specimen(s) bybrushing or washing, when performed (separateprocedure) Diagnosis Code(s): --- Professional --- Z80.0, Family history of malignant neoplasmof digestive organs K57.30, Diverticulosis of large intestine without perforation or abscess withoutbleeding CPT copyright 2021 [employer]. All rights reserved. The codes documented in this report are preliminary and upon public safety police reviewmay be revised to meet current compliance requirements. Scope In: 10:50:29 AM Scope Withdrawal Time 0 hours 6 minutes 46 seconds Scope Out: 11:01:06 AM Kenroy Rose MD PROCEDURE ORD Final Res ult * ANTI HCV (03/15/2022 4:24 PM CDT) HEPATITIS C ANTIBODY Non-React bessie Non-React bessie 03/17/2022 5:11 AM CDT [facility] Comment:Antibodies to HCV no t detected; does not exclude the possibility of exposure to HCV. Blood BLOOD SPECIMEN / Unknown Venipuncture / Unknown 03/15/2022 4:24 PM CDT 03/15/2022 4:24 PM CDT Isabelle Hall DO SEND OUTS Final Resu lt [facility] [address] [place] [address], [place] * ANTI HIV 1/2 (03/15/2022 4:24 PM CDT) HIV-1/HIV-2 ANTIBODY Non-Reacti ve Non-Reacti ve 03/17/2022 6:11 AM CDT [facility] Comment:HIV-1 p24 and HIV-1/ HIV-2 Ab not detected. Blood BLOOD SPECIMEN / Unknown Venipuncture / Unknown 03/15/2022 4:24 PM CDT 03/15/2022 4:24 PM CDT Isabelle Hall DO SEND OUTS Final Resu lt [facility] [address] [place] [address], from Last 3 Months or Most Recently Relevant to Health Maintenance Insurance [facility]-ITS KASSI HOLLINS [facility] [employer] Care Teams Reading Instructor Relationship Specialty Start Date End Date Oliva Rawls [place] [address] [place] [address] PCP - General Family Practice 02/01/13
--- OUTSIDE RECORDS SUMMARY | 2024-12-15 00:18 | XMS_ITS | Clinical Summary ---
Author Organization [facility] Address [address] [place] [address] Care Team Providers Care Bundle Tier Name Role Phone Unavailable Primary Care Provider Unavailabl e Source Comments Patient records contain information from all sites at [facility]. For routine questions regarding patient records, call [phone] during business hours, M-F 8:00 AM - 5:00 PM Central Time. Record requests for emergency care only can be directed to [phone] at any time.[facility] Allergies Active Allergy Reactions Criticality Noted [...] Packs/Day Years Used Date Smoking Tobacco: Never Comments Unknown Sex and Gender Information Value Date Recorded Sex Assigned at Not on file Legal Sex Female 4:26 AM [employer] Gender Identity Not on file Sexual Orientation Not on file Last Filed Vital Signs Vital Sign Reading Time Taken Comments Blood Pressure 110/64 11/02/2012 9:04 AM CDT Pulse 75 11/02/2012 9:04 AM CDT Temperature - - Respiratory Rate 18 08/10/2012 8:16 AM [employer] Oxygen Saturation - - Inhaled Oxygen Concentration [...] HPV Reflex (11/02/2012 11:30 AM CDT) Interpretation [id number] [facility]ART [facility] See Comment POWERCHART Comment: A. ThinPrep Pap Test Screen (Cervical/Endocervical HPV Reflex): Satisfactory for evaluation. Negative for intraepithelial lesion or malignancy. Fungal organisms morphologically consistent with Tona species [facility] See Comment POWERCHART Comment: Report electronically signed by APPLE Bess(ASCP) 11/08/2012 13:52 Interpreted by: APPLE Bess(ASCP) [facility] See Comment POWERCHART Comment: A. ThinPrep Pap Test Screen (Cervical/Endocervical HPV Reflex): Received cloudy specimen in ThinPrep vial. Test Performed by: [address] [address] Photograph Mounter: Ranjith Coronel III, M.D. Cervix/Endocervix 11/02/2012 11:30 AM CDT us Delon Ornelas M.D. LAB PAP PATHDX ORDERABLES Cherise l Result POWERCHART from Last 3 Months or Most Recently Relevant to Health Maintenance [facility] [id number]
--- OUTSIDE RECORDS SUMMARY | 2024-12-15 00:18 | XMS_ITS | Clinical Summary ---
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 Major depressive disorder with single episode Overview (01/16/2020): Overview: Major depression, single episode NOS Encounters Date Type Department Care Team Description 12/14/2024 11:20 AM CDT Office Visit [facility] [address] [place] [address] Roderick Alvarado MD Procedure (L4-5 ILESI) 11/30/2024 Telephone [facility] [address] [place] [address] Roderick Alvarado MD Results 11/29/2024 2:45 PM CDT Ancillary Procedure [facility] [address] [facility] [address] [place] [address] 11/29/2024 Travel 11/23/2024 10:20 AM CDT Office Visit [facility] [address] [place] [address] Roderick Alvarado MD Musculoskeletal Problem (Consult back pain) 11/23/2024 Travel 10/10/2024 2:00 PM CDT Ancillary Procedure [facility] [address] [place] [address] 10/10/2024 1:00 PM CDT Office Visit [facility] [address] [place] [address] Oliva Rawls PA Back Pain (L lower back, that radiates around the front down the leg. / Wondering if she has kidney stones. ); Urinary Problem (Blood in urine) 10/10/2024 Travel 09/19/2024 3:20 PM CDT Office Visit [facility] [address] [place] [address] Oliva Rawls PA Medication Management (Stopped mounjaro due to side effects - discuss next steps) 09/19/2024 Travel 09/13/2024 11:38 PM CDT - 09/14/2024 2:55 AM CDT Emergency [facility] [address] [place] [address] Mikel Flor MD Nausea and vomiting, unspecified vomiting type (Primary Dx); Diarrhea, unspecified type; Medication side effect Discharge Disposition: Home Self Care from Last 3 Months Immunizations Immunization Administration Dates Next Due AMB INFLUENZA, IIV4 (AGE=>6M OS) MDV (Flu Clinic Only) 04/09/2019 03/26/2020 COVID-19 vaccine (Flavourly-Bio NTech 30mcg/0.3mL) 12YO+ BIVALENT PF, MDV 05/18/2022 COVID-19 vaccine (Flavourly-Bio NTech 30mcg/0.3mL) PF, MDV 08/01/2020,07/10/2020 Hepatitis B [...] on file Legal Sex Female 6:28 AM [employer] Gender Identity Not on file Sexual Orientation [...] 11/23/2024 10:26 AM CDT Plan of Treatment Health Maintenance [...] Additional history exists Colonoscopy through age 76 04/29/202804/29, 04/29/2023, 04/29/2023 Hepatitis B series for 19+ [...] For Patients: As a result of the Century Cures Act, medical imaging exams and procedure [...] For Patients: As a result of the Century Cures Act, medical imagingexams and procedure reports [...] proximal to the UVJ without evidence ofhydronephrosis (). Nonobstructing nephrolith in the right kidney.Subcentimeter hypodense [...] esult * (ABNORMAL) POCT Urinalysis Dipstick Only [[id number]] (10/10/2024 1:18 PM CDT) PH 6.0 5.0 - 8.0 [facility] SPECIFIC GRAVITY < OR = 1.005 1.001 - 1.035 [facility] Comment: Specific [place] values resulted are outside the analytical measurement range of this device. Recommend repeat/additional testing as clinically indicated. GLUCOSE NEGATIVE NEGATIVE [facility] BILIRUBIN NEGATIVE NEGATIVE [facility] KETONES NEGATIVE NEGATIVE [facility] OCCULT BLOOD 3+(A) NEGATIVE [facility] PROTEIN NEGATIVE NEGATIVE [facility] NITRITE NEGATIVE NEGATIVE [facility] LEUKOCYTE ESTERASE NEGATIVE NEGATIVE [facility] Urine URINE SPECIMEN / Unknown 10/10/2024 1:18 PM CDT 10/10/2024 1:18 PM CDT Oliva SAMANO URINE Final R esult [facility] [address] [place] [address], [facility] [address] [place] [address] * (ABNORMAL) URINALYSIS MICROSCOPIC [61323.1] - routine (10/10/2024 1:15 PM CDT) RBC 3-5(A) 0-2, None Seen /HPF 10/10/2024 11:10 PM CDT [facility] WBC 0-2 0-2, 3-5, None Seen /HPF 10/10/2024 11:10 PM CDT [facility] BACTERIA None Seen None Seen, Rare, Few Bacteria/ HPF 10/10/2024 11:10 PM CDT [facility] EPITHELIAL CELLS Few None Seen, Few Epi/HPF 10/10/2024 11:10 PM CDT [facility] HYALINE CASTS 0-2 0-2, 3-5 /LPF 10/10/2024 11:10 PM CDT [facility] Urine URINE SPECIMEN / Unknown Non-Blood / Unknown 10/10/2024 1:15 PM CDT 10/10/2024 1:15 PM CDT Oliva SAMANO URINE Final R esult Performing Organization Address City/[facility]/ZIP Co de Phone Number [facility] [address] [place] [address], [place] * URINE CULTURE [10371.2] (10/10/2024 1:15 PM CDT) CULTURE No growth (<1,000 CFU/mL) 10/12/2024 8:23 AM CDT [facility] Urine URINE SPECIMEN / Unknown Non-Blood / Unknown 10/10/2024 1:15 PM CDT 10/10/2024 1:15 PM CDT Oliva SAMANO MICROBIOLOGY Final R esult Performing Organization Address City/[facility]/ZIP Co de Phone Number [facility] [address] [place] [id number], [place] * URINALYSIS W REFLEX MICROSCOPIC IF POSITIVE (09/14/2024 1:38 AM CDT) COLOR Yellow Yellow Color 09/14/2024 1:51 AM T [facility] CLARITY Clear Clear Clarity 09/14/2024 1:51 AM T [facility] SPECIFIC GRAVITY,URINE 1.020 1.010, 1.015, 1.020, 1.025 09/14/2024 1:51 AM [facility] PH,URINE 6.0 6.0, 7.0, 8.0, 5.5, 6.5, 7.5, 8.5 09/14/2024 1:51 AM [facility] UROBILINOGEN, QUALITATIVE Normal Normal EU/dl 09/14/2024 1:51 AM [facility] PROTEIN, URINE Negative Negative mg/dL 09/14/2024 1:51 AM [facility] GLUCOSE, URINE Negative Negative mg/dL 09/14/2024 1:51 AM [facility] KETONES,URINE Negative Negative mg/dL 09/14/2024 1:51 AM [facility] BILIRUBIN,URI NE Negative Negative 09/14/2024 1:51 AM [facility] OCCULT BLOOD,URINE Negative Negative 09/14/2024 1:51 AM [facility] NITRITE Negative Negative 09/14/2024 1:51 AM [facility] LEUKOCYTE ESTERASE Negative Negative 09/14/2024 1:51 AM [facility] Urine URINE SPECIMEN / Unknown Non-Blood / Unknown 09/14/2024 1:38 AM CDT 09/14/2024 1:48 AM CDT us Mikel Flor MD URINE Final Result [facility] [address] [place] [address] * URINE (09/14/2024 1:38 AM CDT) ,URIN E Negative Negative 09/14/2024 1:54 AM [facility] Urine URINE SPECIMEN / Unknown Non-Blood / Unknown 09/14/2024 1:38 AM CDT 09/14/2024 1:48 AM CDT us Mikel Flor MD URINE Final Result [facility] [address] [place] [address] * (ABNORMAL) CBC WITH AUTO DIFFERENTIAL (09/14/2024 12:06 AM CDT) WHITE BLOOD COUNT 14.7(H) 4.5 - 11.0 thou/cu mm 09/14/2024 12:11 AM [facility] RED BLOOD COUNT 5.64(H) 4.00 - 5.20 mil/cu mm 09/14/2024 12:11 AM [facility] HEMOGLOBIN 15.9 12.0 - 16.0 g/dL 09/14/2024 12:11 AM [facility] HEMATOCRIT 48.1 33.0 - 51.0 % 09/14/2024 12:11 AM [facility] MCV 85 80 - 100 fL 09/14/2024 12:11 AM [facility] MCH 28.2 26.0 - 34.0 pg 09/14/2024 12:11 AM [facility] MCHC 33.1 32.0 - 36.0 g/dL 09/14/2024 12:11 AM [facility] RDW 13.2 11.5 - 15.5 % 09/14/2024 12:11 AM [facility] PLATELET COUNT 322 140 - 440 thou/cu mm 09/14/2024 12:11 AM [facility] MPV 8.7 6.5 - 11.0 fL 09/14/2024 12:11 AM [facility] % NEUT 76.9 % 09/14/2024 12:11 AM [facility] % LYMPH 15.3 % 09/14/2024 12:11 AM [facility] % MONO 6.6 % 09/14/2024 12:11 AM [facility] % EOS 1.1 % 09/14/2024 12:11 AM [facility] % BASO 0.1 % 09/14/2024 12:11 AM [facility] ABSOLUTE NEUTROPHILS 11.3(H) 1.7 - 7.0 thou/cu mm 09/14/2024 12:11 AM [facility] ABSOLUTE LYMPHOCYTES 2.2 0.9 - 2.9 thou/cu mm 09/14/2024 12:11 AM [facility] ABSOLUTE MONOCYTES 1.0(H) <0.9 thou/cu mm 09/14/2024 12:11 AM [facility] ABSOLUTE EOSINOPHILS 0.2 <0.5 thou/cu mm 09/14/2024 12:11 AM [facility] ABSOLUTE BASOPHILS 0.0 <0.3 thou/cu mm 09/14/2024 12:11 AM [facility] Blood BLOOD SPECIMEN / Unknown Venipuncture / Unknown 09/14/2024 12:06 AM CDT 09/14/2024 12:08 AM CDT Mikel Flor MD HEMATOLOGY Final Result Performing Organization Address City/State/[facility] Co de Phone Number [facility] [address] [place] [address] * LIPASE (09/14/2024 12:06 AM CDT) LIPASE 35.0 13.0 - 60.0 IU/L 09/14/2024 12:28 AM T [facility] Blood BLOOD SPECIMEN / Unknown Venipuncture / Unknown 09/14/2024 12:06 AM CDT 09/14/2024 12:08 AM CDT Mikel Flor MD CHEMISTRY Final Result [facility] [address] [place] [address] * HEPATIC FUNCTION PANEL (09/14/2024 12:06 AM CDT) ALBUMIN 4.4 4.0 - 4.9 g/dL 09/14/2024 12:28 AM T [facility] PROTEIN,TOTAL 7.8 6.0 - 8.0 g/dL 09/14/2024 12:28 AM T [facility] BILIRUBIN,TOTAL 0.5 0.0 - 1.2 mg/dL 09/14/2024 12:28 AM T [facility] BILIRUBIN,DIRECT 0.2 0.0 - 0.2 mg/dL 09/14/2024 12:28 AM T [facility] BILIRUBIN,INDIRE CT 0.3 0.2 - 0.8 mg/dL 09/14/2024 12:28 AM T [facility] ALK PHOSPHATASE 72 35 - 104 IU/L 09/14/2024 12:28 AM [facility] ALT (SGPT) 19 10 - 35 IU/L 09/14/2024 12:28 AM [facility] AST (SGOT) 16 10 - 35 IU/L 09/14/2024 12:28 AM [facility] Blood BLOOD SPECIMEN / Unknown Venipuncture / Unknown 09/14/2024 12:06 AM CDT 09/14/2024 12:08 AM CDT us Mikel Flor MD CHEMISTRY Final Result Performing Organization Address City/[facility]/ZIP Co de Phone Number [facility] [address] [place] [address] * (ABNORMAL) BASIC METABOLIC PANEL (09/14/2024 12:06 AM CDT) SODIUM 137 136 - 145 mmol/L 09/14/2024 12:28 AM T [facility] POTASSIUM 4.7 3.5 - 5.1 mmol/L 09/14/2024 12:28 AM [facility] CHLORIDE 103 98 - 107 mmol/L 09/14/2024 12:28 AM [facility] CO2,TOTAL 25 22 - 29 mmol/L 09/14/2024 12:28 AM [facility] ANION GAP 9 5 - 18 09/14/2024 12:28 AM [facility] GLUCOSE 149(H) 70 - 99 mg/dL 09/14/2024 12:28 AM [facility] CALCIUM 9.3 8.8 - 10.4 mg/dL 09/14/2024 12:28 AM [facility] Comment: Reference ranges for this test were updated on 05/01/2024 to reflect our healthy population more accurately. Reference range changes are not retroactively applied to results, but previous results using the same methodology can be interpreted in the context of the new reference range. BUN 11 6 - 20 mg/dL 09/14/2024 12:28 AM [facility] CREATININE 0.80 0.50 - 0.90 mg/dL 09/14/2024 12:28 AM [facility] BUN/CREAT RATIO 14 10 - 20 12:28 AM [facility] eGFR >90 >90 mL/min/1. 73m2 09/14/2024 12:28 AM [facility] Comment:As of 2021, eG FR is [...] us Mikel Flor MD CHEMISTRY Final Result [facility] [address] [place], [place] [phone] * COLONOSCOPY (04/29/2023 9:29 AM CDT) 04/29/2023 9:29 AM CDT Narrative Transcriptions Kenroy Rose MD - 04/29/2023 11:05 AM CDT Patient Name: Simon Chen Procedure Date: 04/29/2023 Gender: Female Date of : 1980 Admit Type: Outpatient Procedure: Colonoscopy Proceduralist: Kenroy Rose MD , Regina Hernandez RN (Nurse), Elina Bonilla RN (Nurse) Referring MD: Kenroy Rose Indications/Pre-Op Diagnosis: [...] adequate candidate for conscious sedation. The endoscope [id number] was passed through the anus andadvanced to [...] 9:29 AM Procedure Code(s): --- Professional --- 38155, Colonoscopy, flexible; diagnostic, including collection of specimen(s) bybrushing or washing, when performed (separateprocedure) Diagnosis Code(s): --- Professional --- Z80.0, Family history of malignant neoplasmof digestive organs K57.30, Diverticulosis of large intestine without perforation or abscess withoutbleeding CPT copyright 2021 [employer]. All rights reserved. The codes documented in this report are preliminary and upon skelp processor reviewmay be revised to meet current compliance requirements. Scope In: 10:50:29 AM Scope Withdrawal Time 0 hours 6 minutes 46 seconds Scope Out: 11:01:06 AM us Kenroy Rose MD PROCEDURE ORD Final Res ult * ANTI HCV (03/15/2022 4:24 PM CDT) HEPATITIS C ANTIBODY Non-React bessie Non-React bessie 03/17/2022 5:11 AM CDT [facility] Comment:Antibodies to HCV no t detected; does not exclude the possibility of exposure to HCV. Blood BLOOD SPECIMEN / Unknown Venipuncture / Unknown 03/15/2022 4:24 PM CDT 03/15/2022 4:24 PM CDT [facility] Deena [facility] DO SEND OUTS Final Resu lt [facility] [address] [place] [address], * ANTI HIV 1/2 (03/15/2022 4:24 PM CDT) Pathologist [facility] HIV-1/HIV-2 ANTIBODY Non-Reacti ve Non-Reacti ve 03/17/2022 6:11 AM CDT [facility] Comment:HIV-1 p24 and HIV-1/ HIV-2 Ab not detected. Blood BLOOD SPECIMEN / Unknown Venipuncture / Unknown 03/15/2022 4:24 PM CDT 03/15/2022 4:24 PM CDT [employer] DO SEND OUTS Final Resu lt [facility] [address] [place] [address], from Last 3 Months or Most Recently Relevant to Health Maintenance Insurance [facility] OF NON-NE-ITS KASSI HOLLINS [facility] [place] [phone] Care Teams Professor Of Finance Relationship Specialty Start Date End Date Oliva Rawls PA [address] [place] [address] PCP - General Family Practice 02/01/13
== END 2024-12-14 10:40 | disposition home or self-care (01) ==
PROVIDERS: PCP Physician Assistant Medical; Visit Provider Family Medicine
DX: M54.16 Radiculopathy, lumbar region (principal); M51.369 Other intervertebral disc degeneration, lumbar region without mention of lumbar back pain or lower extremity pain
CPT/HCPCS: 62323; J0702; Q9966